=== PATIENT | male | born 1985 ===

== ENCOUNTER → 2025-06-30 16:18 | Outpatient (REF) | payer OTHER, SELFPAY | LOC: PAVMRI 16:18 | PROVIDERS: ATTENDING PHYSICIAN Physician Assistant Medical; FAMILY PHYSICIAN Family Medicine | DX: M51.26 Other intervertebral disc displacement, lumbar region (principal); M54.50 Low back pain, unspecified; M54.16 Radiculopathy, lumbar region | CPT/HCPCS: 72148 ==